=== PATIENT | male | born 1960 | race Caucasian/White ===

== ENCOUNTER 2020-04-18 06:29 | Day surgery (SDC) | payer BC ==
[2020-04-15 11:15] VITALS: BMI 25.8
[~2020-04-18 06:29] MED LIST: ACETAMINOPHEN TAB 500 MG TAB PO PRN; HEPARIN SODIUM,PORCINE 5,000 UNIT/ML 1 ML VIAL SQ PRN
[2020-04-18] MEDS ORDERED: ONDANSETRON 4 MG/2 ML VIAL ONE (07:09)
[2020-04-18] MEDS ORDERED: HYDROmorphone 0.5 MG/0.5 ML SYRINGE IVP PRN (07:09)
[2020-04-18] MEDS ORDERED: LACTATED RINGERS 1,000 ML IV SCH (07:09)
[2020-04-18] MEDS ORDERED: ONDANSETRON 4 MG/2 ML VIAL IVP ONE (07:09)
[2020-04-18] MEDS ORDERED: DEXAMETHASONE SOD PHOSPHATE 4 MG/ML 1 ML VIAL IV ONE (07:09)
[2020-04-18] MEDS ORDERED: LIDOCAINE 1% (10MG/ML) FOR IV START INTRADERMA ONE (07:16)
[2020-04-18 07:19] VITALS: TEMP 97.2
--- NOTE | 2020-04-18 07:41 | P.GSHP ---
History of Present Illness H&P Date: 04/18/20 Chief Complaint: Left inguinal hernia 59-year-old male known to our service. Patient here today for elective repair left inguinal hernia. Hernia increasing in size with mild pain at times. History of previous umbilical hernia repair without mesh in the past. No symptoms on the right side. Past Medical History Past Medical History: No Reported History History of Any Multi-Drug Resistant Organisms: None Reported Past Surgical History: Orthopedic Surgery Additional Past Surgical History / Comment(s): RIGHT KNEE ARTHROSCOPIC Past Anesthesia/Blood Transfusion Reactions: No Reported Reaction Smoking Status: Never smoker - Past Family History Brother(s) Family Medical History: Cancer Sister(s) Family Medical History: Cancer Medications and Allergies Home Medications Medication Instructions Recorded Confirmed Type Sertraline HCl [Zoloft] 100 mg PO DAILY 04/15/20 04/15/20 History Allergies Allergy/AdvReac Type Severity Reaction Status Date / Time No Known Allergies Allergy Verified 04/18/20 07:12 Surgical - Exam Vital Signs Temp Pulse Resp BP Pulse Ox 97.2 F L 68 16 141/86 97 04/18/20 07:06 04/18/20 07:06 04/18/20 07:06 04/18/20 07:06 04/18/20 07:06 Physical exam: General: Well-developed, well-nourished HEENT: Normocephalic, sclerae nonicteric Abdomen: Nontender, nondistended, reducible left inguinal hernia Extremities: No edema Neuro: Alert and oriented Assessment and Plan (1) Left inguinal hernia Narrative/Plan: Will proceed with laparoscopic da [place] assisted repair left inguinal hernia with mesh, possible bilateral, possible open. Risks of bleeding, infection, recurrence, bladder and bowel injury, numbness, nerve injury, conversion to an open procedure were discussed with the patient. The patient understands and wishes to proceed. Current Visit: Yes Status: Acute Code(s): K40.90 - UNIL INGUINAL HERNIA, W/O OBST OR GANGR, NOT SPCF RECUR SNOMED Code(s): 046693240
[2020-04-18] MEDS ORDERED: fentaNYL (PF) 50 MCG/ML 2 ML AMP ONE (08:09)
[2020-04-18] MEDS ORDERED: LIDOCAINE 1% INJ 10MG/ML (20 ML MDV) ONE (08:09)
[2020-04-18] MEDS ORDERED: KETOROLAC 15 MG/ML 1 ML VIAL ONE (08:09)
[2020-04-18] MEDS ORDERED: MIDAZOLAM 2 MG/2 ML VIAL ONE (08:09)
[2020-04-18] MEDS ORDERED: SUCCINYLCHOLINE CHLORIDE 100 MG/5 ML SYR IV ONE (08:09)
[2020-04-18] MEDS ORDERED: DEXAMETHASONE SOD PHOSPHATE 10 MG/ML 1 ML VIAL ONE (08:09)
[2020-04-18] MEDS ORDERED: ROCURONIUM 10 MG/ML (10 ML VIAL) IV ONE (08:09)
[2020-04-18] MEDS ORDERED: GLYCOPYRROLATE 0.2 MG/ML 2 ML VIAL ONE (08:09)
[2020-04-18] MEDS ORDERED: PROPOFOL 10 MG/ML 20 ML VIAL IV ONE (08:09)
[2020-04-18] MEDS ORDERED: NEOSTIGMINE 1 MG/ML 10 ML VIAL ONE (08:09)
[2020-04-18] MEDS ORDERED: HYDROmorphone (PF) 1 MG/ML ONE (08:09)
[2020-04-18] MEDS ORDERED: LIDOCAINE 1%-EPI 1:100,000 20 ML VIAL SQ ONE ×2 (08:35→08:42)
[2020-04-18] MEDS ORDERED: LACTATED RINGERS 1,000 ML IV ONE ×2 (09:21→11:50)
--- NOTE | 2020-04-18 09:33 | P.OP ---
Date of Procedure: 04/18/20 Procedure(s) Performed: PREOPERATIVE DIAGNOSIS: Left inguinal hernia POSTOPERATIVE DIAGNOSIS: Same PROCEDURE: Laparoscopic repair direct inguinal hernia with the da [place] robot assistance with mesh SURGEON: Mariaa EBL: Minimal ANESTHESIA: General COMPLICATIONS: None OPERATIVE PROCEDURE: Patient was placed in the operating table in the supine position. The patient was placed under general anesthesia. The abdomen was prepped and draped in usual sterile fashion. A small curvilinear supraumbilical incision was made. The fascia was retracted anteriorly with Chris forceps. The Veress needle was inserted. The saline drop test was normal. Insufflation took place to 15 mmHg. An 8 mm trocar was placed into the peritoneal cavity. 2 additional 8 mm trochars were placed in the right upper quadrant and left upper quadrant under visualization. The robotic arms were then brought in and docked into place. The fenestrated bipolar was used in the left arm and the laparoscopic joe was utilized in the right arm. A 30 8 mm scope was used in the up position. The peritoneal cavity was inspected. The patient had an obvious direct hernia on left hand side. There are no hernias on the right. The peritoneum was incised in a horizontal fashion cephalad to the internal inguinal ring. Following that careful dissection of the preperitoneal space took place. This took place using both electrocautery, sharp dissection but primarily blunt dissection. Visualization of the pubic tubercle and Lenny's ligament took place medially. Full dissection took place laterally as well. The hernia sac was fully dissected. Once we had adequate space the 15 x 10 progrip mesh was advanced into the preperitoneal space and flattened out appropriately to cover all potential hernia sites. I did use a short running suture medially in a vertical fashion to help secure the mesh given the large size of this direct defect. This was a 2-0 the lock suture.. The peritoneal defect was then closed using a locking 2-0 VLok suture. The large redundant hernia sac was incorporated into the peritoneal closure. The pneumoperitoneum was then evacuated. The skin of all 3 sites was closed using a 4-0 Monocryl stitch. Skin glue was then applied. DISPOSITION: Stable to recovery room
[2020-04-18 10:15] VITALS: RESP 16
[2020-04-18 11:51] VITALS: BP 127/65; PULSE 61
[2020-04-18] MEDS ORDERED: ACETAMINOPHEN TAB 325 MG TAB PO SCH (12:00)
[2020-04-18] MEDS ORDERED: IBUPROFEN 600 MG TAB PO SCH (12:27)
== END 2020-04-18 12:25 | disposition home or self-care (01) ==
LOC: OR 06:29
PROVIDERS: ATTEND Surgery
DX: K40.90 Unilateral inguinal hernia, without obstruction or gangrene, not specified as recurrent (principal); Z87.19 Personal history of other diseases of the digestive system; Z98.890 Other specified postprocedural states; Z79.899 Other long term (current) drug therapy; Z80.9 Family history of malignant neoplasm, unspecified
CPT/HCPCS: 49650; S2900

== ENCOUNTER → 2020-05-08 | Outpatient (CLI) | payer BC ==
--- NOTE | 2020-05-08 09:53 | ECHOF ---
Referral Reason:RO6.02 MEASUREMENTS -------- HEIGHT: 177.8 cm WEIGHT: 81.6 kg BP: RVIDd: 3.0 cm (< 3.3) IVSd: 0.9 cm (0.6 - 1.1) LVIDd: 4.3 cm (3.9 - 5.3) LVPWd: 0.9 cm (0.6 - 1.1) IVSs: 1.3 cm LVIDs: 2.7 cm LVPWs: 1.5 cm LA Diam: 3.7 cm (2.7 - 3.8) LAESV Index (A-L): 16.65 ml/m Ao Diam: 2.8 cm (2.0 - 3.7) AV Cusp: 1.9 cm (1.5 - 2.6) MV EXCURSION: 16.703 mm (> 18.000) MV EF SLOPE: 141 mm/s (70 - 150) EPSS: 0.6 cm MV E Emilio: 0.58 m/s MV DecT: 376 ms MV A Emilio: 0.51 m/s MV E/A Ratio: 1.14 FINDINGS -------- Sinus rhythm. This was a technically good study. The left ventricular size is normal. Left ventricular wall thickness is normal. Overall left vent ricular systolic function is normal with, an EF between 60 - 65 %. The right ventricle is normal in size. Normal LA size by volume 22+/-6 ml/m2. The right atrium is normal in size. Interatrial and interventricular septum intact. The aortic valve is trileaflet and appears structurally normal. There is trace to mild mitral regurgitation. Trace tricuspid regurgitation present. There is no pulmonic regurgitation present. The aortic root size is normal. Normal inferior vena cava with normal inspiratory collapse consistent with estimated right atrial pre ssure of 5 mmHg. There is no pericardial effusion. CONCLUSIONS -------- 1. The left ventricular size is normal. 2. Left ventricular wall thickness is normal. 3. Overall left ventricular systolic function is normal with, an EF between 60 - 65 %. 4. There is trace to mild mitral regurgitation. 5. Trace tricuspid regurgitation present. 6. There is no pericardial effusion. SHORER: Crista Polo [facility]
--- NOTE | 2020-05-08 10:15 | P.STRESS ---
- Stress Test Note Stress Test Results/Findings: Exam Performed: stress test Exam Date: 05/08/20 Reason for Exam: Dyspenia on exertion Height: 5 ft 11 in Weight: 81.65 kg Protocol: Raymond Stage: 2 Duration of Exercise: 6:00 Resting Heart Rate: 67 Resting Blood Pressure: 136/90 Maximum Achieved Heart Rate: 156 Maximum Achieved Blood Pressure: 224/110 85% PMHR: 135 100% PMHR: 159 METS: 7.1 Technologist Comment: Stress Test Results/Findings: This is a 60-year-old gentleman being evaluated for cardiac status. Stress data: Baseline EKG showed sinus rhythm with normal AL interval and QRS duration with mild nonspecific ST-T changes. Blood pressure at rest is 136/90, pulse rate of 67. Patient walked on the Raymond protocol for about 6 minutes achieving a maximum heart rate of 156 with a blood pressure 195/92. The test was stopped because patient got short of breath. The post-excised. His blood pressure was up to 224/110. EKG taken during and after exercise showed mild upsloping ST depression in inferolateral leads which are not diagnostic for ischemia. Occasional PVCs were noted. Patient did not experience any chest pain. Final impression 1. Below average exercise capacity #2. Hypertensive response to the exercise #3. Mild nonspecific ST-T changes were noted which are not diagnostic for ischemia. #4. Patient did not experience any chest pain about 5. The test was stopped because patient got short of breath and also his blood pressure went very high.
--- NOTE | 2020-05-08 15:55 | ECHOS ---
Stress Test Results/Findings: Exam Performed: stress test Exam Date: 05/08/20 Reason for Exam: Dyspenia on exertion Height: 5 ft 11 in Weight: 81.65 kg Protocol: Raymond Stage: 2 Duration of Exercise: 6:00 Resting Heart Rate: 67 Resting Blood Pressure: 136/90 Maximum Achieved Heart Rate: 156 Maximum Achieved Blood Pressure: 224/110 85% PMHR: 135 100% PMHR: 159 METS: 7.1 Technologist Comment: Stress Test Results/Findings: This is a 60-year-old gentleman being evaluated for cardiac status. Stress data: Baseline EKG showed sinus rhythm with normal TN interval and QRS duration with mild nonspecific ST-T changes. Blood pressure at rest is 136/90, pulse rate of 67. Patient walked on the Raymond protocol for about 6 minutes achieving a maximum heart rate of 156 with a blood pressure 195/92. The test was stopped because patient got short of breath. The post-excised. His blood pressure was up to 224/110. EKG taken during and after exercise showed mild upsloping ST depression in inferolateral leads which are not diagnostic for ischemia. Occasional PVCs were noted. Patient did not experience any chest pain. Final impression 1. Below average exercise capacity #2. Hypertensive response to the exercise #3. Mild nonspecific ST-T changes were noted which are not diagnostic for ischemia. #4. Patient did not experience any chest pain about 5. The test was stopped because patient got short of breath and also his blood pressure went very high. MTDD
== END | disposition home or self-care (01) ==
LOC: RADNMMAIN 08:16
PROVIDERS: ATTEND Family Medicine
DX: I05.1 Rheumatic mitral insufficiency (principal); I10 Essential (primary) hypertension; R94.39 Abnormal result of other cardiovascular function study
CPT/HCPCS: 93017; 93306

== ENCOUNTER 2023-06-15 07:21 | Day surgery (SDC) | payer BC ==
[2023-06-14 09:24] VITALS: BMI 23.7
[~2023-06-15 07:21] MED LIST changes: -ACETAMINOPHEN TAB 500 MG TAB PO PRN; -HEPARIN SODIUM,PORCINE 5,000 UNIT/ML 1 ML VIAL SQ PRN; +LIDOCAINE 1% (10MG/ML) FOR IV START INTRADERMA PRN
[2023-06-15] MEDS: LACTATED RINGERS 1,000 ML IV SCH (07:59)
[2023-06-15 08:11] VITALS: TEMP 97.8
[2023-06-15] MEDS ORDERED: PROPOFOL 10 MG/ML 20 ML VIAL IV ONE (08:11)
--- NOTE | 2023-06-15 08:33 | P.PCN ---
Date of Procedure: 06/15/23 Procedure(s) Performed: BRIEF HISTORY: Patient is a 63-year-old pleasant white male scheduled for an elective colonoscopy as a part of screening for colon cancer/family history of colon cancer. His brother was evidence of colon cancer at age 54. PROCEDURE PERFORMED: Colonoscopy. PREOPERATIVE DIAGNOSIS: Screening for colon cancer/family history of colon cancer. IV sedation per Anesthesia. PROCEDURE: After informed consent was obtained, the patient, was brought into the endoscopy unit. IV sedation was administered by Anesthesia under continuous monitoring. Digital rectal examination was normal. Initially the Olympus CF-160 flexible video colonoscope was then inserted in the rectum, gradually advanced into the cecum without any difficulty. Careful examination was performed as the scope was gradually being withdrawn. Ileocecal valve and the appendiceal orifice were visualized and appeared normal. Prep was excellent. Mucosa of the cecum, ascending colon, transverse colon, descending colon, sigmoid colon, and rectum appeared normal. Scattered sigmoid diverticulosis. Retroflexion was performed in the rectum and small internal hemorrhoids were seen. The patient tolerated the procedure well. IMPRESSION: Normal-appearing colon from rectum to cecum with no evidence of colorectal neop lasia . Scattered sigmoid diverticulosis. Grade 2 internal hemorrhoids. RECOMMENDATIONS: Findings of this examination were discussed with the patient as well as his family. He was advised to have a repeat screening colonoscopy every 5 years because of the family history of colon cancer.
[2023-06-15 09:24] VITALS: BP 104/69; PULSE 65
[2023-06-15 09:25] VITALS: RESP 16
== END 2023-06-15 09:12 | disposition home or self-care (01) ==
LOC: ORWHC2ENDO 07:21
PROVIDERS: ATTEND Internal Medicine Gastroenterology
DX: Z12.11 Encounter for screening for malignant neoplasm of colon (principal); K57.30 Diverticulosis of large intestine without perforation or abscess without bleeding; K64.1 Second degree hemorrhoids; Z80.0 Family history of malignant neoplasm of digestive organs; Z79.899 Other long term (current) drug therapy; Z98.890 Other specified postprocedural states
CPT/HCPCS: 45378; J2704